=== PATIENT | male | born 2000 | race Caucasian/White ===

== ENCOUNTER 2018-12-06 09:14 | Emergency (ER) | payer SELFPAY | END 2018-12-06 09:41 | disposition home or self-care (01) | LOC: ERS 09:14 | DX: H66.92 Otitis media, unspecified, left ear (principal); J31.0 Chronic rhinitis | CPT/HCPCS: 99282 ==

== ENCOUNTER 2019-01-22 18:46 | Emergency (ER) | payer SELFPAY ==
--- NOTE | 2019-01-22 19:07 | RAD ---
XR Ankle Rt 3 View STANDARD HISTORY: Ankle pain no injury. COMPARISON: None. FINDINGS: There are no signs of fracture, dislocation or joint effusion. No other findings. IMPRESSION: Negative right ankle.
[2019-01-22] MEDS ORDERED: Ibuprofen 800 MG TAB ONE (19:59)
== END 2019-01-22 20:07 | disposition home or self-care (01) ==
LOC: ERS 18:46
DX: S93.401A Sprain of unspecified ligament of right ankle, initial encounter (principal); X50.9XXA Other and unspecified overexertion or strenuous movements or postures, initial encounter

== ENCOUNTER 2019-05-02 08:19 | Emergency (ER) | payer SELFPAY ==
--- NOTE | 2019-05-02 10:23 | RAD ---
XR Chest Pa Lat STANDARD HISTORY: Chest pain, shortness of breath COMPARISON: None FINDINGS: The heart size is normal. The lungs are well expanded without focal areas of consolidation, pneumothorax or pleural effusions. IMPRESSION: No radiographic evidence of acute cardiopulmonary process.
[2019-05-02] MEDS ORDERED: Ketorolac Tromethamine 30 MG/ML VIAL ONE (10:48)
== END 2019-05-02 11:06 | disposition home or self-care (01) ==
LOC: EEVIPCON 08:19 → ERS 08:19
DX: R07.9 Chest pain, unspecified (principal)
CPT/HCPCS: 71046; 93005; 96372; J1885